=== PATIENT | female | born 1930 | race Caucasian/White ===

== ENCOUNTER 2019-04-13 17:36 | Inpatient (IN) | payer MEDICAID ==
[~2019-04-13] VITALS: Ht 149.9 cm; Wt 61.2 kg
[2019-04-13] MEDS ORDERED: SODIUM CHLORIDE 0.9% 1,000 ML IV ONE (18:24)
[2019-04-13 18:57] LABS: BASOPHILS % 0.4 % (0.0-2.0); EOSINOPHILS % 1.1 % (0.0-5.0); HEMATOCRIT. 37.9 % (36.0-48.0); HEMOGLOBIN. 12.6 g/dL (12.0-16.0); LYMPHOCYTES % 24.2 % (20.0-50.0); MEAN CORPUSCULAR HEMOGLOBIN 28.5 pg (28.0-32.0); MEAN CORPUSCULAR VOLUME 85.5 fL (81.0-99.0); MEAN PLATELET VOLUME 7.7 fl (7.4-10.4); MONOCYTES % 10.4 % (2.0-8.0); NEUTROPHILS % 63.9 % (40.0-76.0); PLATELET 223 x1000/uL (130-400); RED BLOOD CELL COUNT 4.43 mill/uL (4.2-5.4); RED CELL DISTRIBUTION WIDTH 13.2 % (11.6-14.6)
[2019-04-13 19:04] LABS: CHLORIDE 104 mEq/L (98-107)
[2019-04-13 19:09] LABS: PARTIAL THROMBOPLASTIN TIME 32.9 sec (23.4-31.0); PROTHROMBIN TIME 10.1 sec (9.6-11.0)
[2019-04-13 20:17] LABS: CLARITY URINE CLEAR (CLEAR); COLOR URINE DARK YELLOW (YELLOW); KETONES URINE TRACE (NEGATIVE); LEUKOCYTE ESTERASE URINE 2+ (NEGATIVE); NITRITE URINE NEGATIVE (NEGATIVE); OCCULT BLOOD URINE NEGATIVE (NEGATIVE); PROTEIN URINE TRACE (NEGATIVE); SPECIFIC GRAVITY URINE 1.017 (1.005-1.030)
[2019-04-13] MEDS ORDERED: CEFTRIAXONE 1 G PREMIX 50 ML IV ONE (20:45)
[2019-04-14] MEDS ORDERED: ONDANSETRON HCL 4MG/2ML INJ IV PRN (08:30)
[2019-04-14] MEDS ORDERED: ACETAMINOPHEN 325MG TABLET PO PRN (08:30)
[2019-04-14 09:05] VITALS: BP 141/57
[2019-04-14 12:00] VITALS: BP 135/46
[2019-04-14 16:03] VITALS: BP_SYST 128; BP_SYST 145; BP_DIAS 48; BP_DIAS 53
[2019-04-14 20:00] VITALS: BP 132/52
[2019-04-14] MEDS ORDERED: CEFTRIAXONE 1 G PREMIX 50 ML IV SCH (21:00)
[2019-04-15] VITALS: BP 128/60
[2019-04-15 04:00] VITALS: BP 137/52
[2019-04-15 07:02] LABS: BASOPHILS % 0.6 % (0.0-2.0); EOSINOPHILS % 1.7 % (0.0-5.0); HEMATOCRIT. 36.5 % (36.0-48.0); HEMOGLOBIN. 12.4 g/dL (12.0-16.0); LYMPHOCYTES % 46.1 % (20.0-50.0); MEAN CORPUSCULAR HEMOGLOBIN 28.8 pg (28.0-32.0); MEAN CORPUSCULAR VOLUME 84.9 fL (81.0-99.0); MEAN PLATELET VOLUME 8.5 fl (7.4-10.4); MONOCYTES % 12.7 % (2.0-8.0); NEUTROPHILS % 38.9 % (40.0-76.0); PLATELET 232 x1000/uL (130-400); RED CELL DISTRIBUTION WIDTH 12.9 % (11.6-14.6)
[2019-04-15 07:20] LABS: CHLORIDE 106 mEq/L (98-107)
[2019-04-15 08:00] VITALS: BP 146/67
[2019-04-15 12:00] VITALS: BP 133/49
[2019-04-15] MEDS ORDERED: LEVO500T2 MT (14:47)
[2019-04-15 15:47] VITALS: BP 124/43
[2019-04-15 16:00] VITALS: BP 124/43
== END 2019-04-15 17:47 | disposition home or self-care (01) | DRG 720 ==
LOC: ER 18:36 → 8WST 22:33 → EDBEDREQ 22:42 → EDBEDREQSVC 04-14 05:40 → ENRESERV 04-14 07:10 → 8WST 04-14 10:18
PROVIDERS: ADMIT Internal Medicine; ATTEND Internal Medicine
DX: A41.9 Sepsis, unspecified organism (principal); R65.21 Severe sepsis with septic shock; E87.1 Hypo-osmolality and hyponatremia; G90.8 Other disorders of autonomic nervous system; G90.9 Disorder of the autonomic nervous system, unspecified; E86.9 Volume depletion, unspecified; N39.0 Urinary tract infection, site not specified; J98.11 Atelectasis; I10 Essential (primary) hypertension; Z95.0 Presence of cardiac pacemaker; R55 Syncope and collapse
CPT/HCPCS: 36415; 71045; 80048; 81003; 83880; 84484; 93005; 93306; 93880; 93970; 96365; 97162; 99285; C1893; J0696; J7030; J7040